=== PATIENT | female | born 1985 | race Caucasian/White ===

== ENCOUNTER → 2018-03-05 | Outpatient (CLI) | payer BC | END | disposition home or self-care (01) | LOC: US 03-01 12:30 → LAB 16:52 → US 17:00 | DX: Z34.81 Encounter for supervision of other normal pregnancy, first trimester (principal); Z3A.09 9 weeks gestation of pregnancy ==

== ENCOUNTER → 2018-03-09 | Outpatient (CLI) | payer BC ==
[2018-03-09 08:41] LABS: BASO % 0.4 % (0.0-1.0); EOS # 0.1 10*3/uL (0.0-0.4); EOS % 0.8 % (1.0-4.0); HEMATOCRIT 42.3 % (37.0-47.0); HEMOGLOBIN 13.9 g/dl (12.0-16.0); LYMPH # 2.4 10*3/uL (1.3-4.4); LYMPH % 24.6 % (27.0-41.0); MEAN CELL VOLUME 89.4 fl (81.0-99.0); MEAN CORPUSCULAR HGB 29.4 pg (27.0-31.0); MEAN CORPUSCULAR HGB CONC 32.9 g/dl (33.0-37.0); MEAN PLATELET VOLUME 9.9 fl (9.6-12.3); MONO # 0.8 10*3/uL (0.1-1.0); MONO % 8.3 % (3.0-9.0); NEUT # 6.4 10*3/uL (2.3-7.9); NEUT % 65.4 % (47.0-73.0); PLATELET COUNT AUTOMATED 331 10*3/uL (130-400); RED BLOOD COUNT 4.73 10*6/uL (4.10-5.10); RED CELL DISTRI WIDTH 12.6 % (0-14.5); WHITE BLOOD COUNT 9.8 10*3/uL (4.8-10.8)
[2018-03-09 09:05] LABS: URINE AMPHETAMINES < 1000 (1000ng/ml); URINE BARBITURATES < 200 (200ng/ml); URINE BENZODIAZEPINES < 200 (200ng/ml); URINE CANNABINOIDS (THC) < 50 (50ng/ml); URINE COCAINE < 300 (300ng/ml); URINE METHADONE < 300 (300ng/ml); URINE OPIATES < 300 (300ng/ml)
[2018-03-09 09:07] LABS: URINE PHENCYCLIDINE < 25 (25ng/ml)
[2018-03-10 19:08] LABS: HEPATITIS B SURFACE AG Negative (Negative); HEPATITIS C VIRUS ANTIBODY <0.1 s/co (0.0-0.9)
== END | disposition home or self-care (01) ==
LOC: LAB 08:03
PROVIDERS: Nurse Practitioner Women's Health
DX: Z34.81 Encounter for supervision of other normal pregnancy, first trimester (principal)

== ENCOUNTER → 2018-03-13 | Outpatient (CLI) | payer BC | END | disposition home or self-care (01) | LOC: LAB 08:39 | DX: R73.09 Other abnormal glucose (principal) ==

== ENCOUNTER → 2018-05-29 | Outpatient (CLI) | payer BC | END | disposition home or self-care (01) | LOC: US 15:57 | DX: Z34.82 Encounter for supervision of other normal pregnancy, second trimester (principal); Z3A.21 21 weeks gestation of pregnancy ==

== ENCOUNTER → 2018-07-13 | Outpatient (CLI) | payer BC | END | disposition home or self-care (01) | LOC: LAB 08:03 | DX: Z34.93 Encounter for supervision of normal pregnancy, unspecified, third trimester (principal); Z3A.28 28 weeks gestation of pregnancy ==

== ENCOUNTER → 2018-09-11 | Outpatient (CLI) | payer BC | END | disposition home or self-care (01) | LOC: US 11:59 | DX: Z34.93 Encounter for supervision of normal pregnancy, unspecified, third trimester (principal); P08.1 Other heavy for gestational age newborn; Z3A.36 36 weeks gestation of pregnancy ==

== ENCOUNTER → 2018-09-13 | Outpatient (CLI) | payer BC ==
[2018-09-18 09:13] LABS: MICROALBUMIN, 24HR URINE 12.6 mg/day (<30.0)
== END | disposition home or self-care (01) ==
LOC: LAB 16:29
PROVIDERS: Nurse Practitioner Women's Health
DX: R03.0 Elevated blood-pressure reading, without diagnosis of hypertension (principal)

== ENCOUNTER 2020-04-05 10:41 | Emergency (ER) | payer BC ==
[~2020-04-05] VITALS: Ht 170.1 cm; Wt 141.5 kg
[2020-04-05 11:09] LABS: BASO % 0.1 % (0.0-1.0); EOS # 0.1 10*3/uL (0.0-0.4); EOS % 0.5 % (1.0-4.0); HEMATOCRIT 45.3 % (37.0-47.0); LYMPH # 1.7 10*3/uL (1.3-4.4); LYMPH % 17.3 % (27.0-41.0); MEAN CELL VOLUME 85.6 fl (81.0-99.0); MEAN CORPUSCULAR HGB 28.2 pg (27.0-31.0); MEAN CORPUSCULAR HGB CONC 32.9 g/dl (33.0-37.0); MEAN PLATELET VOLUME 9.4 fl (9.6-12.3); MONO # 0.6 10*3/uL (0.1-1.0); MONO % 6.4 % (3.0-9.0); NEUT # 7.5 10*3/uL (2.3-7.9); NEUT % 75.4 % (47.0-73.0); PLATELET COUNT AUTOMATED 404 10*3/uL (130-400); RED BLOOD COUNT 5.29 10*6/uL (4.10-5.10); RED CELL DISTRI WIDTH 12.9 % (0-14.5)
[2020-04-05 11:19] LABS: INTERNATIONAL NORM RATIO 1.1 (2.0-3.5)
[2020-04-05 11:23] LABS: ALBUMIN 4.4 gm/dl (3.1-4.5); ALKALINE PHOSPHATASE 101 U/L (45-117); BUN 12 mg/dl (7-24); CHLORIDE 108 mmol/L (98-107); CREATININE 1.27 mg/dL (0.55-1.02); POTASSIUM 4.3 mmol/L (3.5-5.1); SGOT/AST 9 IU/L (3-35); SGPT/ALT 23 U/L (12-78); SODIUM 139 mmol/L (136-145); TOTAL PROTEIN 8.6 gm/dL (6.4-8.2)
[2020-04-05 11:27] LABS: BETA-HCG, QUANT < 1.0 mIU/mL (1-3)
[2020-04-05] MEDS ORDERED: ZOFRAN4 MG PO (12:30)
[2020-04-05] MEDS ORDERED: FLOMAX0.4 MG PO (12:30)
[2020-04-05] MEDS ORDERED: HYDROCODONE-AC1 EAC1 PO (12:30)
== END 2020-04-05 13:02 | disposition home or self-care (01) ==
LOC: ED 10:41
PROVIDERS: Family Medicine
DX: N13.2 Hydronephrosis with renal and ureteral calculous obstruction (principal); R11.2 Nausea with vomiting, unspecified; Z87.442 Personal history of urinary calculi

== ENCOUNTER → 2023-05-21 | Day surgery (SDC) | payer BC ==
[2023-05-17 13:02] VITALS: BP 162/112
[~2023-05-21] VITALS: Ht 170.1 cm; Wt 158.8 kg
[~2023-05-21] MED LIST: ACETAMINOPHEN 100 ML IV ONE; ALLERGY OTC PO; ATROPINE SULFATE 1 MG/10 ML SYR IV ONE; Dexamethasone Sodium Phospha 20 MG/5 ML VIAL IV ONE; FLOMAX0.4 MG PO; GLYCOPYRROLATE 0.4 MG/2 ML VIAL IV ONE; HYDROCODONE-AC1 EAC1 PO; Ketorolac Tromethamine 30 MG/ML VIAL IV ONE; Lactated Ringer's Solution 1,000 ML IV ONE; Lactated Ringer's Solution 1,000 ML IV SCH; Lidocaine Hydrochloride 2% 10 ML AMP IM ONE; Midazolam Hydrochloride 2 MG/2 ML VIAL IV ONE; Midazolam Hydrochloride 2 MG/2 ML VIAL ONE; Neostigmine Methylsulfate 3 MG/3 ML SYRINGE IV ONE; Ondansetron Hydrochloride 4 MG/2 ML VIAL IV ONE; PROPOFOL 200 MG/20 ML VIAL IV ONE; ROCURONIUM BROMIDE 50 MG/5 ML SYRINGE IV ONE; Racepinephrine Hydrochloride 0.5 ML AMP ONE; SEVOFLURANE 250 ML BOT INH ONE; SODIUM CHLORIDE 0.9% 1,000 ML IV ONE; Succinylcholine Chloride 200 MG/10 ML SYRINGE IV ONE; ZOFRAN4 MG PO; diphenhydrAMINE hydrochloride 50 MG/ML VIAL IV ONE
[2023-05-21 09:02] VITALS: BP 152/91
[2023-05-21 11:40] VITALS: BP 137/84
[2023-05-21 11:55] VITALS: BP 144/94
[2023-05-21 12:09] VITALS: BP 151/91
[2023-05-21 12:24] VITALS: BP 158/89
[2023-05-21 12:40] VITALS: BP 150/90
== END | disposition home or self-care (01) ==
LOC: SDC 05-17 12:30
PROVIDERS: ATTEND Obstetrics & Gynecology
DX: Z30.2 Encounter for sterilization (principal); N83.8 Other noninflammatory disorders of ovary, fallopian tube and broad ligament; F32.A Depression, unspecified; E66.01 Morbid (severe) obesity due to excess calories; Z68.30 Body mass index [BMI] 30.0-30.9, adult; Z87.891 Personal history of nicotine dependence; Z98.890 Other specified postprocedural states; Z79.899 Other long term (current) drug therapy; Z83.3 Family history of diabetes mellitus; Z82.5 Family history of asthma and other chronic lower respiratory diseases